=== PATIENT | female | born 1950 | race Caucasian/White ===

== ENCOUNTER 2016-08-14 13:30 | Outpatient (RCR) | payer MEDICARE, OTHER ==
[~2016-08-14 13:30] MED LIST: ANTIVERT 25MG25 MG PO; ASPIRIN E.C.325 MG PO; CARAFATE 1GM1 G PO; CARAFATE S1 GM/10 ML PO; CIPRO 250MG TA250 MG PO; CIPRO 500MG TA500 MG PO; DARVOCET-N-101 UDTAB PO; LEVAQUIN 5500 MG/TA1 PO; LORTAB 5/500 501 TAB PO; MOTRIN 200200 MG/TAB PO; NO HOME MEDICATIONS; NORCO 325 MG-51 TAB PO; OMNICEF 300MG300 MG PO; PROAIR HFA0.09 MG/AC IH; PROTONIX20 MG PO; PYRIDIUM 100MG100 MG PO; TYLENOL 325MG325 MG PO; VENTOLIN0.09 MG IH; [UNRECOGNIZED DRUG - OTHER]; osteobiflex
== END 2016-09-06 | disposition home or self-care (01) ==
LOC: MKS.ESL.PT
DX: C50.011 Malignant neoplasm of nipple and areola, right female breast (principal); I97.2 Postmastectomy lymphedema syndrome
CPT/HCPCS: G8984-GP; G8985-GP

== ENCOUNTER 2017-01-11 10:46 | Emergency (ER) | payer MEDICARE ==
[~2017-01-11] VITALS: Ht 167.6 cm; Wt 72.7 kg
[2017-01-11 10:51] VITALS: BP 145/79; TEMP 98.9
[2017-01-11 11:51] LABS: PH 5 (5-8); URINE APPEARANCE Hazy; URINE BACTERIA Rare /hpf; URINE BILIRUBIN Negative (NEGATIVE); URINE BLOOD 1+ (NEGATIVE); URINE COLOR Yellow; URINE GLUCOSE Negative (NEGATIVE); URINE KETONE Negative (NEGATIVE); URINE RBC 0-2 /hpf; URINE UROBILINOGEN Negative (NEGATIVE)
[2017-01-11] MEDS ORDERED: CIPRO 250MG TA250 MG PO (12:04)
[2017-01-11 12:14] VITALS: PULSE 86
== END 2017-01-11 12:15 | disposition home or self-care (01) ==
LOC: COL.ER 10:46
PROVIDERS: Physician Assistant
DX: N39.0 Urinary tract infection, site not specified (principal); Z90.49 Acquired absence of other specified parts of digestive tract; Z90.710 Acquired absence of both cervix and uterus; Z85.3 Personal history of malignant neoplasm of breast; Z90.11 Acquired absence of right breast and nipple; Z95.9 Presence of cardiac and vascular implant and graft, unspecified

== ENCOUNTER → 2017-01-14 | Outpatient (CLI) | payer MEDICARE ==
[~2017-01-14] MED LIST changes: +CLEOCIN HC150 MG/CAP PO
== END ==
LOC: COL.RAD 11:19
DX: R10.31 Right lower quadrant pain (principal)

== ENCOUNTER 2017-02-05 08:58 | Emergency (ER) | payer MEDICARE, OTHER ==
[~2017-02-05] VITALS: Ht 170.2 cm; Wt 75.0 kg
[~2017-02-05 08:58] MED LIST changes: -CLEOCIN HC150 MG/CAP PO
[2017-02-05 09:00] VITALS: TEMP 98.5
[2017-02-05 09:22] LABS: COLLECTION METHOD CLEAN CATCH
[2017-02-05 09:27] LABS: PH 6 (5-8); SQUAMOUS EPITHELIAL None Seen /hpf; URINE APPEARANCE Clear; URINE BACTERIA None Seen /hpf; URINE BILIRUBIN Negative (NEGATIVE); URINE BLOOD Negative (NEGATIVE); URINE COLOR Straw; URINE GLUCOSE Negative (NEGATIVE); URINE KETONE Negative (NEGATIVE); URINE LEUKOCYTE ESTERASE Negative (NEGATIVE); URINE NITRATE Negative (NEGATIVE); URINE PROTEIN(semi-quant) Negative (NEGATIVE); URINE RBC 0-2 /hpf; URINE UROBILINOGEN Negative (NEGATIVE)
[2017-02-05] MEDS ORDERED: CLEOCIN HC150 MG/CAP PO (10:45)
[2017-02-05 11:06] VITALS: BP 156/96; PULSE 76
== END 2017-02-05 11:08 | disposition home or self-care (01) ==
LOC: COL.ER 08:58
PROVIDERS: Physician Assistant
DX: L03.032 Cellulitis of left toe (principal); R10.84 Generalized abdominal pain

== ENCOUNTER 2017-05-30 11:14 | Emergency (ER) | payer MEDICARE ==
[~2017-05-30] VITALS: Ht 167.6 cm; Wt 72.7 kg
[~2017-05-30 11:14] MED LIST changes: +CLEOCIN HC150 MG/CAP PO
[2017-05-30 11:15] VITALS: BP 178/87; PULSE 86; TEMP 99
[2017-05-30 12:19] LABS: INFLUENZA A NEGATIVE; INFLUENZA B NEGATIVE
[2017-05-30] MEDS ORDERED: LEVAQUIN 5500 MG/TA1 PO (12:45)
== END 2017-05-30 12:58 | disposition home or self-care (01) ==
LOC: COL.ER 11:14
PROVIDERS: Emergency Medicine
DX: J06.9 Acute upper respiratory infection, unspecified (principal)

== ENCOUNTER → 2018-10-17 | Outpatient (CLI) | payer MEDICARE | LOC: COL.RAD 09:01 | DX: C50.011 Malignant neoplasm of nipple and areola, right female breast (principal); M25.511 Pain in right shoulder | CPT/HCPCS: A9503 ==

== ENCOUNTER → 2019-05-08 | Outpatient (CLI) | payer MEDICARE | LOC: COL.RAD 14:23 | DX: C50.919 Malignant neoplasm of unspecified site of unspecified female breast (principal); C78.00 Secondary malignant neoplasm of unspecified lung; Z90.11 Acquired absence of right breast and nipple; Z90.49 Acquired absence of other specified parts of digestive tract | CPT/HCPCS: Q9967 ==

== ENCOUNTER 2021-11-05 11:02 | Emergency (ER) | payer MEDICARE ==
[~2021-11-05] VITALS: Ht 165.1 cm; Wt 78.2 kg
[2021-11-05 11:15] VITALS: TEMP 98.5
[2021-11-05 11:30] LABS: COLLECTION METHOD CLEAN CATCH
[2021-11-05 11:38] LABS: MUCOUS Present (NOT PRESENT); PH 6 (5-8); SQUAMOUS EPITHELIAL None Seen /hpf (0-10); URINE APPEARANCE Hazy (CLEAR/HAZY); URINE BACTERIA None Seen /hpf (NONE SEEN); URINE BILIRUBIN Negative (NEGATIVE); URINE BLOOD 1+ (NEGATIVE); URINE COLOR Yellow (YELLOW); URINE GLUCOSE Negative (NEGATIVE); URINE KETONE Negative (NEGATIVE); URINE LEUKOCYTE ESTERASE 2+ (NEGATIVE); URINE NITRATE Negative (NEGATIVE); URINE PROTEIN(semi-quant) Negative (NEGATIVE); URINE UROBILINOGEN Negative (NEGATIVE)
[2021-11-05 11:43] LABS: BASO % 0.5 % (0.0-2.0); EOS % 0.6 % (0.0-4.0); GRAN # 3.9 K/mm3 (1.4-6.5); GRAN % 60.2 % (42.2-75.2); HEMATOCRIT 45.4 % (37.0-47.0); HEMOGLOBIN 15.4 g/dl (12.5-16.0); LYMPH # 1.8 K/mm3 (1.2-3.4); LYMPH % 28.1 % (20.0-51.0); MEAN CELL VOLUME 85 fl (80.0-100.0); MEAN CORPUSCULAR HEMOGLOBIN 29 pg (27-31); MEAN CORPUSCULAR HGB CONC 34 g/dl (33.0-37.0); MEAN PLATELET VOLUME 9.8 fl (7.4-10.4); MONO # 0.6 K/mm3 (0.1-0.6); PLATELET COUNT 298 K/mm3 (130-400); RED BLOOD COUNT 5.34 M/mm3 (4.10-5.30); REDCELL DISTRIBUTION WIDTH-CV 13.2 % (11.5-14.5)
[2021-11-05 12:02] LABS: ALBUMIN 3.3 gm/dL (3.4-4.8); BILIRUBIN,TOTAL 0.5 mg/dL (0.2-1.2); C-REACTIVE PROTEIN 2.35 mg/dL (0.00-0.50); CALCIUM 8.9 mg/dL (8.4-10.2); CREATININE, serum 0.76 mg/dL (0.57-1.11); TOTAL PROTEIN 7.2 gm/dL (6.2-8.1)
[2021-11-05 12:09] LABS: POTASSIUM 3.2 mmol/L (3.5-4.5)
[2021-11-05] MEDS ORDERED: MACROBID 1100 MG/CAP PO (13:56)
[2021-11-05 14:11] VITALS: BP 135/81; PULSE 83
== END 2021-11-05 14:11 | disposition home or self-care (01) ==
LOC: COL.ER 11:02
PROVIDERS: Physician Assistant
DX: N39.0 Urinary tract infection, site not specified (principal); K59.00 Constipation, unspecified; Z88.0 Allergy status to penicillin; Z90.49 Acquired absence of other specified parts of digestive tract; Z98.890 Other specified postprocedural states
CPT/HCPCS: J0696; J7030; Q9967